=== PATIENT | male | born 1960 | race Caucasian/White ===

== ENCOUNTER 2022-12-23 08:00 | Outpatient (CLI) | payer BC ==
--- NOTE | 2022-12-23 12:43 | XRAY Report ---
PROCEDURE: Knee 4 View RT INDICATIONS: RIGHT KNEE PAIN TECHNIQUE: 4 views of the right knee(s) were acquired. COMPARISON: None. FINDINGS: Bones: No acute fractures or dislocations. No suspicious bony lesions. Moderate right and moderate- severe left knee medial femoral tibial compartment joint space narrowing. Tricompartmental degenerati ve changes of the right knee. Chronic appearing ossification noted over the lateral aspect of the dis olaf right femoral condyle. Soft tissues: Moderate right knee joint effusion. No suspicious soft tissue calcifications or masses . IMPRESSION: No acute fracture or dislocation. Moderate tricompartmental osteoarthrosis of the right knee with moderate sized joint effusion. Moderate right and moderate-severe left medial femorotibial compartment joint space narrowing. Reviewed by: Alonso Najera MD on 12/23/2022 11:42 AM [facility] Approved by: Alonso Najera MD on 12/23/2022 11:42 AM [facility] Station ID: [id number]
== END 2022-12-23 23:59 | disposition home or self-care (01) ==
LOC: DI.WOS 08:00
PROVIDERS: ATTEND Physician Assistant Surgical
DX: M17.11 Unilateral primary osteoarthritis, right knee (principal); M25.461 Effusion, right knee